=== PATIENT | female | born 1935 | race Caucasian/White ===

== ENCOUNTER 2016-11-27 18:01 | Emergency (ER) | payer MEDICARE ==
[2016-11-27 18:23] VITALS: BP 160/73
[2016-11-27] MEDS ORDERED: KETOROLAC TROMETHAMINE 60 MG/2 ML VIAL IM ONE (18:43)
[2016-11-27] MEDS ORDERED: KETOROLAC TROMETHAMINE 30 MG/ML VIAL ONE (18:48)
--- OUTSIDE RECORDS SUMMARY | 2016-11-27 18:52 | XMS REPORT | Summary of Care ---
:1935 Author Organization [facility] Address [address] [place] [address] Care Team Providers Name Role Phone Christ Gibbs Primary Care Physician Encounter Date(s): 10/05/16 - 10/05/16 [facility], [address] [place], [place] [address] Discharge Diagnosis: Nephrolithiasis Discharge Diagnosis: Nocturia Discharge Disposition: Discharged to Home or Self Care Attending Physician: Enrrique Mitchell MD Referring Physician: Enrrique Mitchell MD Vital Signs Most recent to oldest [Reference Range]: 1 Blood Pressure [90-130/60-90 mmHg] 110/68mmHg (10/05/16 11:21 AM) Mean Arterial Pressure, Cuff 82 mmHg (10/05/16 11:21 AM) Most recent to oldest [Reference Range]: 1 Weight Dosing 102 kg (10/05/16 11:21 AM) Problem List Condition Effective Dates Status Health Status Informant Arthritis(Confirmed) Active Diabetes mellitus(Confirmed) Active L2-3 & L3-4 Disc herniation, stenosis, 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, & neurogenic claudication(Confirmed) Hypertension(Confirmed) Active Nephrolithiasis(Confirmed) Active Nocturia(Confirmed) Active L4-5 Spondylolisthesis & 2009 Active stenosis(Confirmed) Thyroid disease(Confirmed) Active Allergies, Adverse Reactions, Alerts Substance Reaction Severity Status Fosinopril Sodium Active ibuprofen Active naproxen Active quinapril Active Vasotec Active Medications aspirin 81 mg oral tablet 1 tab(s), Oral, Daily, 0 Refill(s) Start Date: 01/14/14 Status: Orderedatorvastatin 20 mg oral tablet 1 tab(s), Oral, Daily, 0 Refill(s) Start Date: 01/14/14 Status: OrderedDaily Multiple Vitamins 1 tab(s), Oral, Daily, 0 Refill(s) Start Date: 01/14/14 Status: Ordereddiltiazem 120 mg oral tablet 1 tab(s), Oral, TID, 0 Refill(s) Start Date: 01/14/14 Status: Orderedfiber 2 gram chewable tablet fiber 2 gram chewable tablet, take 1 Tablet by Oral route every day, 0 Refill(s) Special Instructions: take 1 Tablet by Oral route every day Start Date: 01/14/14 Status: OrderedHYDROcodone-acetaminophen 5 mg-325 mg oral tablet 1 tab(s), Oral, TID, X 30 days, # 90 tab(s), 0 Refill(s), other reason (Rx) Start Date: 01/14/14 Stop Date: 02/13/14 Status: Completedlevothyroxine 100 mcg (0.1 mg) oral tablet 1 tab(s), Oral, Daily, 0 Refill(s) Start Date: 01/14/14 Status: Orderedlisinopril 10 mg oral tablet 1 tab(s), Oral, Daily, 0 Refill(s) Start Date: 01/14/14 Status: Orderedomeprazole 40 mg oral delayed release capsule 1 cap(s), Oral, Daily, 0 Refill(s) Start Date: 01/14/14 Status: Orderedpotassium chloride 10 mEq oral tablet, extended release 1 tab(s), Oral, TID, 0 Refill(s) Start Date: 01/14/14 Status: OrderedVitamin D3 1000 intl units oral tablet 1 tab(s), Oral, Daily, 0 Refill(s) Start Date: 01/14/14 Status: Ordered Results No data available for this section Immunizations No data available for this section Procedures Procedure Date Related Diagnosis Body Site Hip replacement 06/2014 L3-4 & L3-4 discectomy & decompression 2012 Right nephroureteroscopy w/extraction 2011 L4-5 Decompression & PSF 2009 Bunionectomy x2 Cholecystectomy Hemorrhoidectomy Hysterectomy Total knee arthroplasty Social History No data available for this section Assessment and Plan No data available for this section
--- OUTSIDE RECORDS SUMMARY | 2016-11-27 18:52 | XMS REPORT | Continuity of Care Document ---
:1935 Author Organization [facility] ([facility]) Address [place] [address] Phone [phone] Care Team Providers Name Role Phone Christ Gibbs Primary Care Provider [phone] Source Comments This disclosure is being made pursuant to the Care Everywhere program, applicable federal and state laws, and may not contain all informaitonavailable regarding this patient.[facility] ([facility]) Active Allergies and Adverse Reactions Allergen Noted Date Severity Reactions Comments Enalapril Maleate 09/27/2015 Unknown Ibuprofen 09/27/2015 Unknown Naproxen 09/27/2015 Unknown Other Agent 10/08/2015 Unknown Cough pill-gold Current Medications Prescription Sig. Disp. Refills Start Date End Date Status aspirin, buffered 81 take 1 tablet 01/24/2012 Active mg tablet (81MG) by oral route every day lisinopril 10 mg take 1 tablet 09/11/2012 Active tablet (10MG) by ORAL route every day potassium chloride 10 take 2 capsule 01/24/2012 Active mEq XR capsule (20MEQ) by oral route every day with food citalopram 20 mg Take 20 mg by Active tablet mouth daily. omeprazole 20 mg XR Take 20 mg by Active tablet mouth daily. atorvastatin 20 mg Take 20 mg by Active tablet mouth every evening. HYDROcodone-acetaminop Take 1 tablet by Active hen 5-325 mg per mouth every 4 tablet hours as needed. diltiazem 240 mg ER Take 1 capsule 90 capsule 4 10/08/2015 Active capsule (240 mg total) by mouth daily. levothyroxine 125 mcg Take 125 mcg by 09/06/2016 Active tablet mouth. Take as directed levothyroxine 112 mcg Take 112 mcg by 09/06/2016 Active tablet mouth. Take as directed multivitamin with Take 1 tablet by Active minerals tablet mouth daily. Active Problems Problem Noted Date Paroxysmal atrial fibrillation Overview: Formatting of this note may be different from the original. 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 Temperature - - Respiratory Rate - - Height 1.626 m (5' 4.02") 10/25/2016 12:13 PM CRISIS WORKER Weight 101.606 kg (224 lb) 10/25/2016 12:13 PM CRISIS WORKER Body Mass Index 38.43 10/25/2016 12:13 PM CRISIS WORKER Oxygen Saturation - - Plan of Care Health Maintenance Due Date Last Done Comments Hepatitis B Vaccine (1 of 3 - Primary Series) 1935 Tdap Vaccine 1945 DIABETIC: Cholesterol 1952 Diabetic: Hdl 1952 DIABETIC: Hemoglobin A1C 1952 Diabetic: Ldl 1952 DIABETIC: Microalbumin 1952 DIABETIC: Triglycerides 1953 Td Vaccine 1953 Colonoscopy 10/20/1984 Zoster Vaccine 1994 Osteoporosis Screening (DXA Bone Density) 1999 Pneumococcal Vaccine (1 of 2 - PCV13) 1999 DIABETIC: Foot Exam 09/27/2015 DIABETIC: Retinal Eye Exam 09/27/2015 Influenza Vaccine: Seasonal (#1) 04/04/2016 Results from Last 3 Months Not on file
--- NOTE | 2016-11-27 19:30 | ERNOTE ---
Upper Extremity HPI - Narrative Date of Service: 11/27/16 - General Extremities Pain Location: other: left - rib area Time Seen by Provider: 11/27/16 18:42 Source: patient Exam Limitations: no limitations - Immun/Allergies/Home Medications Immunizations: IMMUNIZATION HX Immunizations Up to Date Yes History of Influenza Vaccine No Hx Pneumococcal Vaccination No Allergies/Adverse Reactions: Allergies Allergy/AdvReac Type Severity Reaction Status Date / Time enalapril maleate AdvReac Mild upset Verified 05/16/15 22:34 [From Vasotec] stomach enalaprilat dihydrate AdvReac Mild upset Verified 05/16/15 22:34 [From Vasotec] stomach fosinopril sodium AdvReac Mild upset Verified 05/16/15 22:34 [From Monopril] stomach ibuprofen AdvReac Mild upset Verified 05/16/15 22:34 stomach naproxen AdvReac Mild upset Verified 05/16/15 22:34 stomach Home Medications: HOME MEDICATIONS Aspirin [Aspirin Chewable] 81 mg PO DAILY 12/24/12 [Last Taken 06/08/14] Atorvastatin Calcium [Lipitor] 20 mg PO DAILY 12/24/12 [Last Taken 06/15/14] Inulin/Vit D3/Ca Carb/Sorbitol [Fiber Choice Plus Calcium Tab] 1 each PO DAILY 12/24/12 [Last Taken 06/15/14] Levothyroxine Sodium [Synthroid] 112 mcg PO DAILY 12/24/12 [Last Taken 06/15/14] Lisinopril [Zestril] 10 mg PO DAILY 12/24/12 [Last Taken 06/15/14] Multivitamin [Multivitamins] 1 each PO DAILY 12/24/12 [Last Taken 06/15/14] Omeprazole [Prilosec] 20 mg PO DAILY 12/24/12 [Last Taken 06/15/14] Potassium Chloride 10 meq PO BID 12/24/12 [Last Taken 06/15/14] Blood Sugar Diagnostic [Accu-Chek Nuzhat] 1 each MC DAILY 06/05/14 [Last Taken 0600] Diltiazem HCl [Cardizem] 240 mg PO DAILY 06/16/14 [Last Taken Unknown] Citalopram Hydrobromide [Citalopram HBr] 20 mg PO DAILY 11/27/16 [Last Taken Unknown] HYDROcodone/ACETAMINOPHEN [Hydrocodon-Acetaminophen 5-325] 1 each PO TID PRN [Last Taken Unknown] - History of Present Illness Narrative: 81-year-old female presents to the emergency room for left rib pain. Patient states she fell last week and felt a pop this morning she had increased pain. Patient denies chest pain at this time. Denies being short of breath. Date (Duration): 11/27/16 Occurred: last week Location of Incident: home Severity: mild Method of Injury: Reports: fell Reason for Fall: Reports: lost balance Loss of Consciousness: Reports: no loss of consciousness Modifying Factors - (Improves): Reports: pain medication, rest Modifying Factors - (Worsens): Reports: movement Associated Symptoms: Denies: tingling, weakness, numbness distally, loss of power (lt arm) Prior Treament: Reports: treated by physician Review of Systems - Review of Systems Constitutional: Present: See HPI EYE: Present: no symptoms reported ENT: Present: no symptoms reported Respiratory: Present: no symptoms reported. Absent: shortness of breath, cough , wheezing Cardiology: Present: no symptoms reported Gastrointestinal/Abdominal: Present: no symptoms reported Genitourinary: Present: no symptoms reported Musculoskeletal: Present: muscle pain - left rib area Skin: Present: no symptoms reported Neurological: Present: no symptoms reported Endocrine: Present: no symptoms reported Hematologic/Lymphatic: Present: no symptoms reported Psych: Present: no symptoms reported All Other Systems: All systems neg except as marked - Patient's Past Medical History Patient History - Medical: Diabetes Type 2, Depression, GERD, Hypothyroidism Patient History - Cardiac/Respiratory: Atrial Fibrillation, Hypertension, Hyperlipidemia Patient History - Cancer: Other Patient History - Surgical Procedures: Appendectomy, Back Surgery, Colonoscopy, Total Hip Replacement, Total Knee Replacement, Other Patient History - Other: None - Social History Living Situations: other Abuse History: No History of abuse Psych History: Hx of Depression Smoking Status: Never smoker Alcohol Use: none Drug Use: none - Immunizations Immunizations Up to Date: Yes Hx Pneumococcal Vaccination: No History of Influenza Vaccine: No Physical Exam - Physical Exam Narrative: 81-year-old female presenting to the emergency room. States she fell last week landing on her left side outside. Patient has pain to left chest left axillary rib area. Pain is to palpation. Patient is able to take deep breaths without any pain. No bruising or swelling observed. General Appearance: Present: wd/wn, alert, no apparent distress Eye Exam: Normal inspection: bilateral Ears, Nose, Throat: Present: normal ENT inspection Neck: Present: normal inspection Respiratory: Present: no respiratory distress, normal breath sounds, lungs clear , chest tenderness - left chest wall. Absent: respiratory distress, decreased breath sounds Cardiovascular/Chest: Present: regular rate, rhythm, no murmur, normal peripheral pulses Gastrointestinal/Abdominal: Present: normal bowel sounds Back Exam: Present: normal inspection, normal range of motion Extremity Exam: Present: normal inspection Skin Exam: Present: normal color Lymphatic Exam: Present: no adenopathy ED Progress - Vital Signs Vital Signs: Vital Signs 11/27/16 18:11 Temperature 36.4 C L Pulse Rate 77 Respiratory 16 Rate Blood Pressure 160/73 O2 Sat by Pulse 96 Oximetry - X-Ray X-Ray #1 X-Ray: ribs Interpretation: Interp. by md - dr stephanie guzman, Reviewed by md X-ray Comments: no acute findings X-Ray #2 X-Ray: chest Interpretation: Interp. by md - dr stephanie guzman, Reviewed by me X-ray Comments: no acute findings - Progress/Reassessment Chief Complaint: Upper Extremity Injury/Problem Progress:: Improved Progress Note-Subjective: 11/27/16 20:33 improved after im toradol 30mg Departure Clinical Impression: Rib pain on left side - Departure Disposition: Home Follow Up Needed Condition: Stable Instructions: Rib Contusion Additional Instructions: Continue previous home medication regimen. Continue home medication for pain. Follow-up with primary care physician in the next 2 days. Return to the emergency room if you have shortness of breath or increased pain. Referrals: Christ Gibbs MD [Primary Care Provider] -
== END 2016-11-27 20:46 | disposition home or self-care (01) ==
LOC: ER 18:01
DX: R07.81 Pleurodynia (principal); W01.0XXA Fall on same level from slipping, tripping and stumbling without subsequent striking against object, initial encounter; Z91.81 History of falling; Y93.9 Activity, unspecified; Y92.009 Unspecified place in unspecified non-institutional (private) residence as the place of occurrence of the external cause; Y99.9 Unspecified external cause status; E11.9 Type 2 diabetes mellitus without complications; K21.9 Gastro-esophageal reflux disease without esophagitis; E03.9 Hypothyroidism, unspecified; I10 Essential (primary) hypertension; E78.5 Hyperlipidemia, unspecified

== ENCOUNTER 2017-04-07 00:14 | Emergency (ER) | payer MEDICARE ==
--- NOTE | 2017-04-07 02:24 | ERNOTE ---
Trauma/Assault HPI - Narrative Date of Service: 04/06/17 - General Stated Complaint: FALL Time Seen by Provider: 04/07/17 01:01 Source: patient Exam Limitations: no limitations - Immun/Allergies/Home Medications Immunizations: IMMUNIZATION HX Immunizations Up to Date Yes History of Influenza Vaccine No Hx Pneumococcal Vaccination No Allergies/Adverse Reactions: Allergies enalapril maleate [From Vasotec] Adverse Reaction (Mild, Verified 04/07/17 00:27 ) upset stomach enalaprilat dihydrate [From Vasotec] Adverse Reaction (Mild, Verified 04/07/17 00:27) upset stomach fosinopril sodium [From Monopril] Adverse Reaction (Mild, Verified 04/07/17 00: 27) upset stomach ibuprofen Adverse Reaction (Mild, Verified 04/07/17 00:27) upset stomach naproxen Adverse Reaction (Mild, Verified 04/07/17 00:27) upset stomach Home Medications: HOME MEDICATIONS Aspirin [Aspirin Chewable] 81 mg PO DAILY 12/24/12 [Last Taken 06/08/14] Atorvastatin Calcium [Lipitor] 20 mg PO DAILY 12/24/12 [Last Taken 06/15/14] Inulin/Vit D3/Ca Carb/Sorbitol [Fiber Choice Plus Calcium Tab] 1 each PO DAILY 12/24/12 [Last Taken 06/15/14] Levothyroxine Sodium [Synthroid] 112 mcg PO DAILY 12/24/12 [Last Taken 06/15/14] Lisinopril [Zestril] 10 mg PO DAILY 12/24/12 [Last Taken 06/15/14] Multivitamin [Multivitamins] 1 each PO DAILY 12/24/12 [Last Taken 06/15/14] Omeprazole [Prilosec] 20 mg PO DAILY 12/24/12 [Last Taken 06/15/14] Potassium Chloride 10 meq PO BID 12/24/12 [Last Taken 06/15/14] Blood Sugar Diagnostic [Accu-Chek Nuzhat] 1 each MC DAILY 06/05/14 [Last Taken 0600] Diltiazem HCl [Cardizem] 240 mg PO DAILY 06/16/14 [Last Taken Unknown] Citalopram Hydrobromide [Citalopram HBr] 20 mg PO DAILY 11/27/16 [Last Taken Unknown] HYDROcodone/ACETAMINOPHEN [Hydrocodon-Acetaminophen 5-325] 1 each PO TID PRN [Last Taken Unknown] - History of Present Illness Time (Timing): 00:40 Narrative: 81 year old that was in the bath and was attempting to exit. Her right foot did not clear the tub and got hooked, causing her to fall hitting her head. There was no LOC, nor neurological deficits. Denies any N/D. Location Occurred: Reports: home Pain Location: Reports: head Method of Injury: Reports: fall Severity: mild Modifying Factors - (Improves): Reports: other - nothing Modifying Factors - (Worsens): Reports: other - nothing Loss of Consciousness: Reports: no loss of consciousness Associated Symptoms - Trauma: Reports: denies symptoms Review of Systems - Review of Systems Constitutional: Present: no symptoms reported EYE: Present: no symptoms reported ENT: Present: no symptoms reported Respiratory: Present: no symptoms reported Cardiology: Present: no symptoms reported Gastrointestinal/Abdominal: Present: no symptoms reported Genitourinary: Present: no symptoms reported Musculoskeletal: Present: no symptoms reported Skin: Present: no symptoms reported Neurological: Present: no symptoms reported Endocrine: Present: no symptoms reported Hematologic/Lymphatic: Present: no symptoms reported - Patient's Past Medical History Patient History - Medical: Diabetes Type 2, Depression, GERD, Hypothyroidism Patient History - Cardiac/Respiratory: Atrial Fibrillation, Hypertension, Hyperlipidemia, CPAP/BiPAP Home Use, Sleep Apnea Patient History - Cancer: Other Patient History - Surgical Procedures: Appendectomy, Back Surgery, Cholecystectomy, Colonoscopy, Hysterectomy, Total Hip Replacement, Total Knee Replacement, Other, Orthopedic Patient History - Other: None - Social History Living Situations: home Abuse History: No History of abuse Psych History: Hx of Depression Smoking Status: Never smoker Alcohol Use: none Drug Use: none - Immunizations Immunizations Up to Date: Yes Hx Pneumococcal Vaccination: No History of Influenza Vaccine: No Physical Exam - Physical Exam General Appearance: Present: no apparent distress Head Exam: Present: other - abrasion at the right forehead Eye Exam: Normal inspection: bilateral Ears, Nose, Throat: Present: normal ENT inspection Neck: Present: normal inspection Respiratory: Present: no respiratory distress Cardiovascular/Chest: Present: regular rate, rhythm Gastrointestinal/Abdominal: Present: nontender, nondistended, soft Back Exam: Present: normal inspection Extremity Exam: Present: normal inspection Neurological Exam: Present: alert, oriented, normal mood/affect, no motor/ sensory deficits, other - normal gait with walking cane Skin Exam: Present: normal color ED Progress - Vital Signs Patient's Vital Signs:: I have reviewed the patient's vital signs. Vital Signs: Vital Signs 04/07/17 00:21 Temperature 36.7 C Pulse Rate 74 Respiratory 16 Rate Blood Pressure 149/90 O2 Sat by Pulse 96 Oximetry - CT/Ultrasound CT/Ultrasound Narrative: Head CT did not show any acute changes. He was a question of a possible 4 mm aneurysm versus artifact in the M1 segment of the left middle cerebral artery. Spine CT scan demonstrated degenerative joint disease. - Progress/Reassessment Chief Complaint: Fall Progress:: Unchanged Departure Clinical Impression: Fall in bathtub - Departure Disposition: Home self-care Condition: Good Instructions: Fall Prevention in the Home, [id number] Print Language: Slovak Additional Instructions: The patient should contact her primary care physician for follow-up on CT head findings. Referrals: Christ Gibbs MD [Primary Care Provider] -
[2017-04-07 04:36] VITALS: BP 128/72
== END 2017-04-07 02:30 | disposition home or self-care (01) ==
LOC: ER 00:14
DX: R51 Headache (principal); W18.2XXA Fall in (into) shower or empty bathtub, initial encounter; Y93.9 Activity, unspecified; Y92.002 Bathroom of unspecified non-institutional (private) residence as the place of occurrence of the external cause; Y99.9 Unspecified external cause status; I25.10 Atherosclerotic heart disease of native coronary artery without angina pectoris; I10 Essential (primary) hypertension; E03.9 Hypothyroidism, unspecified